=== PATIENT | male | born 1975 | race Caucasian/White ===

== ENCOUNTER 2017-08-01 13:49 | Emergency (ER) | payer SELFPAY ==
[2017-08-01] MEDS ORDERED: Lidocaine 2% Viscous Solution 100 ML Bottle PO ONE (14:15)
[2017-08-01] MEDS ORDERED: Benzocaine 20% Topical Spray UD MUCMEM ONE (14:15)
--- NOTE | 2017-08-01 14:15 | EDM.PDOC ---
ED HPI GENERAL MEDICAL PROBLEM - General Chief Complaint: ENT Problem Stated Complaint: RIGHT SIDE OF FACE SWOLLEN Time Seen by Provider: 08/01/17 13:56 Source of Information: Reports: Patient History Limitations: Reports: No Limitations - History of Present Illness INITIAL COMMENTS - FREE TEXT/NARRATIVE: HISTORY AND PHYSICAL: History of present illness: Patient is a 41-year-old male who presents to the emergency room today with complaints of right-sided facial pain and swelling due to an infected tooth x 2- 3 days. He states that his right lower jaw he noticed swelling along the gum line and started to have some facial swelling. He does not have a dentist here in town and has been using apple cider vinegar, rinses and Tylenol for pain management. He states over the past 24 hours it has gotten worse. He denies any chest pain, shortness of breath, throat pain, ear pain. Denies any fever, chills, abdominal pain, nausea, vomiting or diarrhea. Review of systems: As per history of present illness and below otherwise all systems reviewed and negative. Past medical history: As per history of present illness and as reviewed below otherwise noncontributory. Surgical history: As per history of present illness and as reviewed below otherwise noncontributory. Social history: No reported history of drug or alcohol abuse. Family history: As per history of present illness and as reviewed below otherwise noncontributory. Physical exam: General: Well-developed and well-nourished 42-year-old male. Alert and oriented. Nontoxic appearing and in no acute distress. HEENT: Atraumatic, normocephalic, pupils reactive, negative for conjunctival pallor or scleral icterus, mucous membranes moist, swelling and erythema noted to the right lower molar area. Soft tissue swelling noted to the gumline, at #30 -31. Otherwise throat clear, neck supple, nontender, trachea midline. Lungs: Clear to auscultation, breath sounds equal bilaterally, chest nontender. No lymphadenopathy, trismus or drooling. No meningeal signs Heart: S1S2, regular rate and rhythm. Abdomen: Soft, nondistended, nontender. Pelvis: Stable nontender. Genitourinary: Deferred. Rectal: Deferred. Extremities: Atraumatic, moves all per self. Neurovascular unremarkable. Neuro: Awake, alert, oriented. Cranial nerves II through XII unremarkable. Cerebellum unremarkable. Motor and sensory unremarkable throughout. Exam nonfocal. Diagnostics: [] Therapeutics: Dental Balls Impression: Dental abscess Plan: 1. Please take her clindamycin as directed one tablet 4 times daily 10 days. Cataflam one tablet 3 times daily as needed for pain. Do not take any additional NSAID such as ibuprofen or Aleve while taking this medication. Tramadol has been prescribed for you for evening/nighttime use. He may take one tab every 4-6 hours as needed. This medication may cause drowsiness a do not take it will driving her needing to be functioning. He may use Tylenol for breakthrough pain. Warm salt water gargles may be beneficial up to 3 times daily. 2. For definitive care please follow-up with a dentist. A list has been provided for you. Definitive disposition and diagnosis as appropriate pending reevaluation and review of above. Duration: Day(s): Location: Reports: Face Right Face Pain Score (Numeric/FACES): 7 - Related Data Allergies Allergy/AdvReac Type Severity Reaction Status Date / Time penicillin G Allergy Unknown Other Verified 08/01/17 14:04 Home Meds: Home Meds . [No Known Home Meds] 08/01/17 [History] Past Medical History Genitourinary History: Reports: None Musculoskeletal History: Reports: Back Pain, Chronic Neurological History: Reports: Migraines - Past Surgical History HEENT Surgical History: Reports: Tonsillectomy Social & Family History - Family History Family Medical History: Noncontributory Cardiac: Reports: None Respiratory: Reports: None GI: Reports: None : Reports: Renal Calculus - Tobacco Use Smoking Status *Q: Current Every Day Smoker Years of Tobacco use: 10 Packs/Tins Daily: 1 - Recreational Drug Use Recreational Drug Use: Yes Drug Use in Last 12 Months: Yes Recreational Drug Type: Reports: Marijuana/Hashish, Methamphetamine Recreational Drug Use Frequency: Daily ED ROS ENT - Review of Systems Review Of Systems: ROS reveals no pertinent complaints other than HPI. ED EXAM, ENT - Physical Exam Exam: See Below (See dictation) Course - Vital Signs Last Recorded V/S: Last Vital Signs Temp 98.3 F 08/01/17 14:01 Pulse 113 H 08/01/17 14:01 Resp 18 08/01/17 14:01 BP 125/78 08/01/17 14:01 Pulse Ox 99 08/01/17 14:01 Departure - Departure Time of Disposition: 14:14 Disposition: Home, Self-Care 01 Clinical Impression: Dental abscess - Discharge Information Referrals: PCP,None [Primary Care Provider] - Additional Instructions: The following information is given to patients seen in the emergency department who are being discharged to home. This information is to outline your options for follow-up care. We provide all patients seen in our emergency department with a follow-up referral. The need for follow-up, as well as the timing and circumstances, are variable depending upon the specifics of your emergency department visit. If you don't have a primary care physician on staff, we will provide you with a referral. We always advise you to contact your personal physician following an emergency department visit to inform them of the circumstance of the visit and for follow-up with them and/or the need for any referrals to a consulting specialist. The emergency department will also refer you to a specialist when appropriate. This referral assures that you have the opportunity for follow-up care with a specialist. All of these measure are taken in an effort to provide you with optimal care, which includes your follow-up. Under all circumstances we always encourage you to contact your private physician who remains a resource for coordinating your care. When calling for follow-up care, please make the office aware that this follow-up is from your recent emergency room visit. If for any reason you are refused follow-up, please contact the [facility] Emergency Department at and asked to speak to the emergency department charge nurse. [facility] [address] [place] [id number] 1. Please take her clindamycin as directed one tablet 4 times daily 10 days. Cataflam one tablet 3 times daily as needed for pain. Do not take any additional NSAID such as ibuprofen or Aleve while taking this medication. Tramadol has been prescribed for you for evening/nighttime use. He may take one tab every 4-6 hours as needed. This medication may cause drowsiness a do not take it will driving her needing to be functioning. He may use Tylenol for breakthrough pain. Warm salt water gargles may be beneficial up to 3 times daily. 2. For definitive care please follow-up with a dentist. A list has been provided for you. 3. Return to the ED as needed and as discussed.
[2017-08-01] MEDS ORDERED: Lidocaine 2% Viscous Solution 15 ML Cup ONE (14:19)
[2017-08-01 14:38] VITALS: BP 135/59
== END 2017-08-01 14:35 | disposition home or self-care (01) ==
LOC: MW.ED 13:49
DX: K04.7 Periapical abscess without sinus (principal); F17.210 Nicotine dependence, cigarettes, uncomplicated; Z88.0 Allergy status to penicillin
CPT/HCPCS: 99282; A9270; 99283

== ENCOUNTER 2021-02-02 12:49 | Emergency (ER) | payer SELFPAY ==
[2021-02-02 13:18] VITALS: BP 117/76; PULSE 70
[2021-02-02] MEDS ORDERED: Fluorescein 1 MG Ophth Strip EYELF ONE (13:18)
[2021-02-02] MEDS ORDERED: Tetracaine HCl/PF 0.5% 4 ML Bottle EYELF ONE (13:18)
--- NOTE | 2021-02-02 13:21 | EDM.PDOC ---
ED HPI GENERAL MEDICAL PROBLEM - General Chief Complaint: Eye Problems Stated Complaint: LEFT EYE PAIN Time Seen by Provider: 02/02/21 12:53 Source of Information: Reports: Patient History Limitations: Reports: No Limitations - History of Present Illness INITIAL COMMENTS - FREE TEXT/NARRATIVE: Is a 45-year-old male who presents today for left eye pain. Patient did see active importance of night last night. He has had some sensation of something stuck in there. He is has an eye irritation to light as well. Denies any other injuries any other complaints. Left Eye Pain Score (Numeric/FACES): 6 - Related Data Allergies Allergy/AdvReac Type Severity Reaction Status Date / Time penicillin G Allergy Unknown Other Verified 02/02/21 13:13 Home Meds: Home Meds . [No Known Home Meds] 08/01/17 [History] Past Medical History Genitourinary History: Reports: None Musculoskeletal History: Reports: Back Pain, Chronic Neurological History: Reports: Migraines - Past Surgical History HEENT Surgical History: Reports: Tonsillectomy Social & Family History - Family History Family Medical History: No Pertinent Family History Cardiac: Reports: None Respiratory: Reports: None GI: Reports: None : Reports: Renal Calculus - Caffeine Use Caffeine Use: Reports: None ED ROS GENERAL - Review of Systems Review Of Systems: See Below Constitutional: Reports: No Symptoms HEENT: Reports: Eye Pain Respiratory: Reports: No Symptoms Cardiovascular: Reports: No Symptoms Endocrine: Reports: No Symptoms GI/Abdominal: Reports: No Symptoms : Reports: No Symptoms Musculoskeletal: Reports: No Symptoms Skin: Reports: No Symptoms Neurological: Reports: No Symptoms Psychiatric: Reports: No Symptoms Hematologic/Lymphatic: Reports: No Symptoms Immunologic: Reports: No Symptoms ED EXAM GENERAL W FULL EYE - Physical Exam Exam: See Below Exam Limited By: No Limitations General Appearance: Alert, WD/WN, No Apparent Distress Eye Exam: Bilateral Eye: EOMI, Normal Inspection, PERRL Conjunctiva & Sclera: Bilateral: Normal Appearance Cornea Exam: Left: Corneal Abrasion Extraocular Movements: Bilateral: Intact Pupils: Normal Accommodation Respiratory/Chest: No Respiratory Distress Extremities: Normal Inspection Neurological: Alert, Oriented Course - Vital Signs Last Recorded V/S: Last Vital Signs Temp 98.7 F 02/02/21 13:10 Pulse 70 02/02/21 13:10 Resp 19 02/02/21 13:10 BP 117/76 02/02/21 13:10 Pulse Ox 96 02/02/21 13:10 - Orders/Labs/Meds Meds: Medications Discontinued Medications Generic Name Dose Route Start Last Admin Trade Name Shaun PRN Reason Stop Dose Admin Fluorescein Sodium 1 mg 02/02/21 13:18 02/02/21 13:23 Fluorescein 1 Mg Ophth Strip EYELF 02/02/21 13:19 Not Given ONETIME ONE Tetracaine HCl 1 ml 02/02/21 13:18 02/02/21 13:23 Tetracaine Hcl/Pf 0.5% 4 Ml Bottle EYELF 02/02/21 13:19 1 dose ASDIRECTED ONE Administration - Re-Assessments/Exams Free Text/Narrative Re-Assessment/Exam: 02/02/21 14:09 Patient has corneal abrasion on exam. Patient will be sent home with azithromycin eyedrops and will follow ophthalmology next week. Departure - Departure Time of Disposition: 14:09 Disposition: Home, Self-Care 01 Condition: Good Clinical Impression: Corneal abrasion, left - Discharge Information *PRESCRIPTION DRUG MONITORING PROGRAM REVIEWED*: Not Applicable *COPY OF PRESCRIPTION DRUG MONITORING REPORT IN PATIENT MARLENA: Not Applicable Instructions: Corneal Abrasion Referrals: Maurice Trevizo MD [Primary Care Provider] - Forms: ED Department Discharge Additional Instructions: The following information is given to patients seen in the emergency department who are being discharged to home. This information is to outline your options for follow-up care. We provide all patients seen in our emergency department with a follow-up referral. The need for follow-up, as well as the timing and circumstances, are variable depending upon the specifics of your emergency department visit. If you don't have a primary care physician on staff, we will provide you with a referral. We always advise you to contact your personal physician following an emergency department visit to inform them of the circumstance of the visit and for follow-up with them and/or the need for any referrals to a consulting specialist. The emergency department will also refer you to a specialist when appropriate. This referral assures that you have the opportunity for follow-up care with a specialist. All of these measure are taken in an effort to provide you with optimal care, which includes your follow-up. Under all circumstances we always encourage you to contact your private physician who remains a resource for coordinating your care. When calling for follow-up care, please make the office aware that this follow-up is from your recent emergency room visit. If for any reason you are refused follow-up, please contact the [facility] Emergency Department at and asked to speak to the emergency department charge nurse. Please follow up with your primary care physician. If you do not have a primary care physician, see below: [facility] Address: [facility] [facility] [place] [address] You presented today for eye pain you have what is called a corneal abrasion to your left eye that should heal in the next 7 to 10 days. Recommend you call the number above and follow-up with the ophthalmology. We also sent you some antibiotics to take to prevent infection to the left eye. If you have any other concerning signs or symptoms please return to the ED. Sepsis Event Note (ED) - Focused Exam Vital Signs: Vital Signs Temp Pulse Resp BP Pulse Ox 02/02/21 13:10 98.7 F 70 19 117/76 96 - Assessment/Plan Plan: Is a 45-year-old male who presents today for pain to the left eye at the poking it last night. We will provide tetracaine pain control and do was not present.
== END 2021-02-02 14:19 | disposition home or self-care (01) ==
LOC: MW.ED 12:49
DX: S05.02XA Injury of conjunctiva and corneal abrasion without foreign body, left eye, initial encounter (principal); Z88.0 Allergy status to penicillin; X58.XXXA Exposure to other specified factors, initial encounter
CPT/HCPCS: 99283